=== PATIENT | female | born 1985 | race Caucasian/White ===

== ENCOUNTER → 2025-02-17 13:17 | Outpatient (BNVA) | payer MEDICAID, SELFPAY | PROVIDERS: Referring Provider Nurse Practitioner Occupational Health; Visit Provider Nurse Practitioner Family | DX: L73.8 Other specified follicular disorders (principal); L82.1 Other seborrheic keratosis; L81.4 Other melanin hyperpigmentation; X32.XXXA Exposure to sunlight, initial encounter; L82.0 Inflamed seborrheic keratosis; R20.9 Unspecified disturbances of skin sensation; R20.8 Other disturbances of skin sensation; L29.89 Other pruritus | CPT/HCPCS: 17110; 99203 ==

== ENCOUNTER 2025-04-06 18:14 | Emergency (ER) | payer BC, MEDICAID, SELFPAY ==
[2025-04-06 18:35] VITALS: BP 120/75; PULSE 99; RESP 14; TEMP 37.1; O2SAT 96
[2025-04-06 18:51] VITALS: BP 112/64; PULSE 88; RESP 16; O2SAT 98
[2025-04-06 19:05] LABS: Basophils # 0.1 10^3/uL (0.0-0.1); Basophils % 0.6 %; Eosinophils % 0.2 %; Hematocrit 41.6 % (36-47); Lymphocytes # 0.5 10^3/uL (0.8-4.8); Lymphocytes % 6.4 %; Mean Corpuscular HGB Conc 32.7 g/dL (30-55); Mean Corpuscular Hemoglobin 31.6 pg (27-33); Mean Corpuscular Volume 96.5 fl (85-98); Mean Platelet Volume 8.9 fL (7.4-10.4); Monocytes # 0.8 10^3/uL (0.2-0.9); Monocytes % 9.8 %; Neutrophils # 6.72 10^3/uL (1.8-7.7); Neutrophils % 82.8 %; Nucleated Red Blood Cells % 0 %; Platelet Count 225 10^3/cmm (157-399); Red Blood Count 4.31 10^6/uL (3.85-5.65); Red Cell Distribution Width 12.5 % (12.1-15.1); White Blood Count 8.13 10^3/uL (3.29-11.43)
--- NOTE | 2025-04-06 19:06 | CTR_ITS ---
PROCEDURE INFORMATION: Exam: CT Abdomen And Pelvis With Contrast Exam date and time: 04/06/2025 8:04 PM Age: 39 years old Clinical indication: Abdominal pain; Generalized; Additional info: Llq abdominal pain TECHNIQUE: Imaging protocol: Computed tomography of the abdomen and pelvis with contrast. Radiation optimization: All CT scans at this facility use at least one of these dose optimization techniques: automated exposure control; mA and/or kV adjustment per patient size (includes targeted exams where dose is matched to clinical indication); or iterative reconstruction. Contrast material: OMNIPAQUE 350; Contrast volume: 100 ml; Contrast route: INTRAVENOUS (IV); COMPARISON: CR (CHEST, ) 04/06/2025 7:07 PM RADIATION DOSE METRICS: Total DLP (mGy-cm): 301.8 FINDINGS: Lungs: Minimal right lung base patchy airspace disease. Prominent areas of left mid to lower lung patchy airspace disease with infiltrates and consolidation. Liver: Unremarkable. No enhancing mass. Gallbladder and biliary ducts: No calcified gallstones or biliary dilation identified. Pancreas: Unremarkable with no suspicious mass. No ductal dilation. Spleen: The spleen is not enlarged. No suspicious enhancing mass is noted. Adrenal glands: Normal. No mass. Kidneys and ureters: Several small bilateral renal cysts. No enhancing renal mass or hydronephrosis. Stomach and bowel: Excess large and small bowel gas throughout. No small bowel obstruction, abscess or free air. Few small bowel loops measure up to about 2.7 cm. Appendix: Normal appendix. Intraperitoneal space: Trace pelvic free fluid is probably physiologic. No abscess or free air. Vasculature: No AAA or acute vascular lesion identified. Lymph nodes: No enlarged lymph nodes. Urinary bladder: Unremarkable as visualized. Reproductive: Few ill-defined uterine fibroids are suspected measuring up to about 3 cm. Left ovarian complex cyst or follicle measures 2.1 cm. Bones/joints: No acute fracture. Soft tissues: No acute or suspicious finding noted. CT/CT abdomen pelvis w con* [id number] IMPRESSION: 1. Left lower lobe areas of prominent consolidating pneumonia favored. These should be followed up to resolution. Minimal area of right lung base atelectasis or airspace disease as well. 2. Small left ovarian cyst or follicle measuring about 2 cm. It is mildly complex with a thickened wall. Minimal adjacent free fluid. 3. At least mild diffuse large and small bowel ileus. No small bowel obstruction, abscess or free air. 4. A few other chronic/incidental findings above. COMMENTS: Consistent with the [employer]'s Incidental Findings Committee white paper (J Am Andrey Radiol 2018): Any incidental renal lesion less than 1 cm or classified as too small to characterize, or any incidental cystic renal lesion characterized as simple-appearing, is likely benign. No follow-up imaging is recommended for these lesions per consensus recommendations based on imaging criteria.
--- NOTE | 2025-04-06 19:06 | ED_ITS ---
HPI - General Adult 2 General: Chief complaint: Abdominal Pain Stated complaint: fever 2xday Time Seen by Provider: 04/06/25 18:37 Source: patient Mode of arrival: ambulatory Limitations: no limitations History of Present Illness: Patient is a 39-year-old female presents to ED today with complaint of fever as high as 101?102, cough, and left lower quadrant abdominal pain beginning approximately 2 to 3 days ago. She feels like symptoms started all around the same time. She states she has had one episode of post tussive vomiting but otherwise no episodes of emesis or changes to her bowel movements. Passing flatulence normally. She feels mildly short of breath. No hemoptysis. No sick contacts. She is not having any chest pain. She is afebrile upon arrival here. Reporting normal menstrual cycles. No vaginal discharge/odor. Onset (ago): day(s) Severity: moderate Relieving factors: none Exacerbating factors: none Associated symptoms: Reports cough, dyspnea and fevers/chills; Deny chest pain, headache(s), nausea, rash or vomiting Treatments prior to arrival: none Related Data Previous Rx's ?Medication ?Instructions ?Recorded cyclobenzaprine 5 mg tablet 5 mg PO TID PRN muscle spa sm #20 05/10/24 tabs amoxicillin 500 mg capsule 1,000 mg (2 x 500 mg) PO TI D 7 04/06/25 days #42 caps azithromycin 250 mg tablet See Rx Instructions PO .COM PLEX #6 04/06/25 tabs Allergies Allergy/AdvReac Type Severity Reaction Status Date / Time No Known Allergies Allergy Verified 04/06/25 18:39 Review of Systems 2 Const: Reports: fever(s); Denies: change in appetite, change in weight or night sweats ENMT: Denies: throat pain, odynophagia, ear or mastoid pain, nasal discharge, nasal congestion or sinus pain Card: Denies: chest pain Resp: Reports: dyspnea, non-productive cough and chest congestion; Denies: wheezing or hemoptysis GI: Reports: abdominal pain; Denies: nausea, vomiting, diarrhea, hematochezia or melena : Denies: flank pain, difficulty voiding, dysuria, urinary frequency, urinary urgency or urinary hesitancy Musc: Denies: neck pain, back pain, extremity pain, extremity swelling, joint swelling or joint redness Skin/Breast: Denies: rash Neuro: Denies: headache(s), numbness in extremities, weakness in extremities, sensory changes or dizziness PFSH ED 2 PFSH: Social History Smoking and tobacco/nicotine status: current every day tobacco/nicotine user Physical Exam 2 Const: COMMON NORMALS: no acute distress, average body habitus, patient oriented x3, no limitations, healthy appearing, alert and well nourished Neck/C-Spine: COMMON NORMALS: no lymphadenopathy GENERAL: Yes normal visual inspection Chest: COMMONS NORMALS: normal inspection of the chest and normal palpation of entire chest wall Resp: COMMON NORMALS: normal respiratory effort and clear to auscultation bilaterally AUSCULTATION: clear to auscultation bilaterally Cardio: COMMON NORMALS: regular rate and regular rhythm RATE: regular rate RHYTHM: regular rhythm GI: COMMON NORMALS: Normal to inspection, nondistended, normoactive bowel sounds present, Soft to palpation, No hepatosplenomegaly present and no masses INSPECTION: Yes normal to inspection AUSCULTATION: Yes normoactive bowel sounds PALPATION: Yes Soft to palpation, Yes Tenderness to palpation present (GI) (LLQ), No Guarding due to palpation present (GI), No Rigid due to palpation and Yes No hepatosplenomegaly present : COMMON NORMALS: Yes no CVA tenderness BLADDER/KIDNEY EXAM: Yes no CVA tenderness Back/Pelvis: COMMON NORMALS: no CVA tenderness, thoracic and lumbar spine normal to inspection and no thoracic nor lumbar tenderness Extremity: GENERAL: Yes normal exam except as noted Neuro: VIDHI COMA SCALE: document GCS findings [place] coma scale eye opening: Spontaneous Vidhi coma scale verbal response: Orientated Vidhi coma scale motor response: Obey commands [place] coma scale total score: 15 COMMON NORMALS: patient oriented x3, moves all extremities, no focal motor deficits and no sensory deficits noted SENSORIUM/ORIENTATION: Yes alert Skin: COMMON NORMALS: no rashes or lesions noted GENERAL SKIN EXAM: no rashes or lesions noted Course 2 Vital Signs: Vital signs: Vital Signs Temperature 98.7 F 04/06/25 18:35 Pulse Rate 94 04/06/25 21:15 Respiratory Rate 16 04/06/25 18:51 Blood Pressure 113/86 04/06/25 21:15 Pulse Oximetry 96 04/06/25 21:15 Oxygen Delivery Me thod Room Air 04/06/25 21:00 MDM - General Adult Medical Decision Making Patient appears in no acute distress. Vital signs are stable. Blood work showing a normal white count. Remainder of blood work is unremarkable. XR of her chest concerning for consolidation in her left lung base. CT abdomen and pelvis obtained due to abdominal complaints. This confirmed left lower lobe consolidating pneumonia. She did have a left 2 cm ovarian cyst. Mild diffuse small and large bowel ileus. No obstruction, abscess, or free air. She is reporting normal bowel movements and passing flatulence. She has only had one episode of vomiting and this was post-tussive. Patient was given IV Rocephin prior to discharge. Will place her on amoxicillin and azithromycin for coverage of community-acquired pneumonia. Discussed bland liquid diet for her ileus with recommendations as tolerated. Reassurance given for her ovarian cyst as this should resolve spontaneously. Return to ED precautions discussed. Otherwise I would like her to follow-up with primary care following antibiotic completion to monitor for resolution. Medical Records I reviewed the patient's medical records. Lab Data I reviewed the patient's lab results. 04/06/25 18:53 04/06/25 18:53 Radiology Impressions Abdomen/Pelvis CT 04/06/25 19:06 IMPRESSION: 1. Left lower lobe areas of prominent consolidating pneumonia favored. These should be followed up to resolution. Minimal area of right lung base atelectasis or airspace disease as well. 2. Small left ovarian cyst or follicle measuring about 2 cm. It is mildly complex with a thickened wall. Minimal adjacent free fluid. 3. At least mild diffuse large and small bowel ileus. No small bowel obstruction, abscess or free air. 4. A few other chronic/incidental findings above. COMMENTS: Consistent with the [employer]'s Incidental Findings Committee white paper (J Am Andrey Radiol 2018): Any incidental renal lesion less than 1 cm or classified as too small to characterize, or any incidental cystic renal lesion characterized as simple-appearing, is likely benign. No follow-up imaging is recommended for these lesions per consensus recommendations based on imaging criteria. Chest X-Ray 04/06/25 19:06 IMPRESSION: Mild increased density in the left lung bases concerning for consolidation in the setting of fever and cough. Follow-up as indicated. Laboratory Results WBC 8.13 10^3/uL (3.29-11.43) 04/06/25 18:53 RBC 4.31 10^6/uL (3.85-5.65) 04/06/25 18:53 Hgb 13.60 g/dL (11.27-16.99) 04/06/25 18:53 Hct 41.6 % (36-47) 04/06/25 18:53 MCV 96.5 fl (85-98) 04/06/25 18:53 MCH 31.6 pg (27-33) 04/06/25 18:53 MCHC 32.7 g/dL (30-55) 04/06/25 18:53 RDW 12.5 % (12.1-15.1) 04/06/25 18:53 Plt Count 225 10^3/cmm (157-399) 04/06/25 18:53 MPV 8.9 fL (7.4-10.4) 04/06/25 18:53 Neut % (Auto) 82.8 % 04/06/25 18:53 Lymph % (Auto) 6.4 % 04/06/25 18:53 Titus % (Auto) 9.8 % 04/06/25 18:53 Eos % (Auto) 0.2 % 04/06/25 18:53 Baso % (Auto) 0.6 % 04/06/25 18:53 Neut # (Auto) 6.72 10^3/uL (1.8-7.7) 04/06/25 18:53 Lymph # (Auto) 0.5 10^3/uL (0.8-4.8) L 04/06/25 18:53 Titus # (Auto) 0.8 10^3/uL (0.2-0.9) 04/06/25 18:53 Eos # (Auto) 0.0 10^3/uL (0.0-0.8) 04/06/25 18:53 Baso # (Auto) 0.1 10^3/uL (0.0-0.1) 04/06/25 18:53 Nucleated RBC % (auto) 0 % 04/06/25 18:53 Nucleated RBCs # 0.0 /100WBC 04/06/25 18:53 Sodium 135 mmol/L (136-145) L 04/06/25 18:53 Potassium 3.9 mmol/L (3.5-5.1) 04/06/25 18:53 Chloride 100 mmol/L (98-107) 04/06/25 18:53 Carbon Dioxide 21 mmol/L (22-29) L 04/06/25 18:53 Anion Gap 17.9 (5-19) 04/06/25 18:53 BUN 6 mg/dL (6-20) 04/06/25 18:53 Creatinine 0.7 mg/dL (0.5-0.9) 04/06/25 18:53 GFR Calculation 92.7 mL/min (90-130) 04/06/25 18:53 Glucose 98 mg/dL (65-115) 04/06/25 18:53 Calculated Osmolality 278 mOsm/kg (285-295) L 04/06/25 18:53 Calcium 9.4 mg/dL (8.5-10.5) 04/06/25 18:53 Total Bilirubin 0.4 mg/dL (0.15-1.2) 04/06/25 18:53 AST 16 U/L (0-32) 04/06/25 18:53 ALT 11 U/L (0-33) 04/06/25 18:53 Alkaline Phosphatase 37 U/L (35-105) 04/06/25 18:53 Total Protein 7.8 g/dL (6.6-8.7) 04/06/25 18:53 Albumin 4.4 g/dL (3.5-5.2) 04/06/25 18:53 Globulin 3.4 g/dL (1.3-4.6) 04/06/25 18:53 Lipase 50 U/L (13-60) 04/06/25 18:53 HCG, Qual Negative (Negative) 04/06/25 18:53 Urine Color Yellow (Yellow) 04/06/25 19:44 Urine Appearance Clear (CLEAR) 04/06/25 19:44 Urine pH 6.0 (5-7) 04/06/25 19:44 Ur Specific [place] 1.015 (1.005-1.030) 04/06/25 19:44 Urine Protein 1+ (Negative) A 04/06/25 19:44 Urine Glucose (UA) Negative (Normal) 04/06/25 19:44 Urine Ketones 2+ (Negative) H 04/06/25 19:44 Urine Blood 2+ (Negative) A 04/06/25 19:44 Urine Nitrate Negative (Negative) 04/06/25 19:44 Urine Bilirubin Negative (Negative) 04/06/25 19:44 Urine Urobilinogen 1.0 mg/dL (Negative) 04/06/25 19:44 Ur Leukocyte Esterase Negative (Negative) 04/06/25 19:44 Urine RBC 6-10 /hpf (0-2) 04/06/25 19:44 Urine WBC 0-5 /hpf (0-5) 04/06/25 19:44 Ur Squamous Epith Cells 6-10 /hpf (0-5) 04/06/25 19:44 Amorphous Sediment Not Reportable 04/06/25 19:44 Urine Bacteria Trace /hpf (NONE) 04/06/25 19:44 Hyaline Casts 0.40 /lpf 04/06/25 19:44 All radiology interpretation(s) finalized by discharge Discharge Plan Discharge Patient Disposition: Home Clinical Impression: Cyst of left ovary, Ileus LLL pneumonia Qualifiers: Pneumonia type: due to unspecified organism Qualified Code(s): J18.9 - Pneumonia, unspecified organism Condition: Stable Prescriptions: New amoxicillin 500 mg capsule 1,000 mg PO TID 7 Days Qty: 42 0RF azithromycin 250 mg tablet See Rx Instructions .ROUTE .COMPLEX Qty: 6 0RF Rx Instructions: take 500 mg today (day 1), then 250 mg for 4 days (days 2-5) No Action cyclobenzaprine 5 mg tablet 5 mg PO TID PRN (Reason: muscle spasm) Qty: 20 0RF Discharge Orders: Discharge ED (Routine); Ordered 04/06/25 Ordered By: Tena Ortega Patient Instructions: Bacterial Pneumonia (DC) Activity Restrictions/Additional Instructions: As we discussed, for your antibiotics tomorrow and start them immediately. You may return to the emergency department for worsening shortness of breath, chest pain, generally feeling worse or unwell, or any other concerns you may have. Please follow-up with primary care after antibiotic completion for re- evaluation. As we discussed, CT imaging showing a small left ovarian cyst. This most likely will resolve on its own. They did comment on the presence of a small/large bowel ileus (slowing of your gut). Recommend a bland liquid diet over the next 48 to 72 hours and slowly advance as tolerated. You may return to the emergency department for worsening abdominal pain, repetitive episodes of vomiting, inability to pass stool or flatulence, or any other concerns you may have. Print Language: Greek Coding Level of Care Code ED Night Stocker for Ngoc Álvarez
--- NOTE | 2025-04-06 19:06 | XRR_ITS ---
PROCEDURE INFORMATION: Exam: XR Chest Exam date and time: 04/06/2025 7:07 PM Age: 39 years old Clinical indication: Cough and fever; Additional info: Cough/fever TECHNIQUE: Imaging protocol: Radiologic exam of the chest. Views: 1 view. COMPARISON: No relevant prior studies available. FINDINGS: Lungs: Mild increased density in the left lung bases concerning for consolidation in the setting of fever and cough. Pleural spaces: No pleural effusion or pneumothorax. Heart/Mediastinum: The cardiomediastinal silhouette is within normal limits. Bones/joints: No acute osseous abnormalities are seen. XR/XR chest 1V portable [id number] IMPRESSION: Mild increased density in the left lung bases concerning for consolidation in the setting of fever and cough. Follow-up as indicated.
[2025-04-06 19:17] LABS: HCG, Serum Qual Negative (Negative)
[2025-04-06 19:39] VITALS: BP 109/68; O2SAT 99
[2025-04-06 19:53] LABS: Bilirubin Urine Negative (Negative); Blood Urine 2+ (Negative); Glucose Urine UA Negative (Normal); Ketones Urine 2+ (Negative); Leukocyte Esterase Urine Negative (Negative); Nitrate Urine Negative (Negative); Protein Urine 1+ (Negative); Specific Gravity, Urine 1.015 (1.005-1.030); Urine Appearance Clear (CLEAR); Urine Color Yellow (Yellow)
[2025-04-06 19:55] LABS: Add Urine Microscopic? YES; Bacteria Urine Trace /hpf; WBC Urine 0-5 /hpf (0-5)
[2025-04-06] MEDS: iohexol 350 mg/mL 500 mL Btl (per mL) IV (20:08)
[2025-04-06 20:30] VITALS: BP 130/68; PULSE 86; O2SAT 98
[2025-04-06 21:00] VITALS: BP 113/86; PULSE 96; O2SAT 98
[2025-04-06] MEDS: cefTRIAXone 1,000 mg SDV 1000 MG IVP (21:06)
[2025-04-06 21:15] VITALS: BP 113/86; PULSE 94; O2SAT 96
[2025-04-06 21:51] LABS: Alanine Aminotransferase 11 U/L (0-33); Albumin Level 4.4 g/dL (3.5-5.2); Alkaline Phosphatase 37 U/L (35-105); Anion Gap 17.9 (5-19); Aspartate Amino Transferase 16 U/L (0-32); Blood Urea Nitrogen 6 mg/dL (6-20); Calcium 9.4 mg/dL (8.5-10.5); Carbon Dioxide 21 mmol/L (22-29); Chloride 100 mmol/L (98-107); Creatinine Clr Calc Pharmacy 94.3979; Globulin 3.4 g/dL (1.3-4.6); Glomerular Filtration Rate 92.7 mL/min (90-130); Glucose 98 mg/dL (65-115); Lipase 50 U/L (13-60); Osmolality Calculated 278 mOsm/kg (285-295); Potassium 3.9 mmol/L (3.5-5.1); Sodium 135 mmol/L (136-145); Total Bilirubin 0.4 mg/dL (0.15-1.2); Total Protein 7.8 g/dL (6.6-8.7)
== END 2025-04-06 21:16 | disposition home or self-care (01) ==
PROVIDERS: Emergency Provider Physician Assistant
DX: K56.7 Ileus, unspecified (principal); N83.202 Unspecified ovarian cyst, left side; J18.9 Pneumonia, unspecified organism; Z72.0 Tobacco use
CPT/HCPCS: 71045; 74177; 80053; 81001; 83690; 84703; 85025; 96374; 99285; J0696

== ENCOUNTER → 2025-09-26 08:27 | Outpatient (BNVA) | payer BC, MEDICAID, SELFPAY | PROVIDERS: Visit Provider Orthopaedic Surgery | DX: M25.511 Pain in right shoulder (principal) | CPT/HCPCS: 73030 ==

== ENCOUNTER 2025-10-11 12:55 | Outpatient (CLI) | payer BC, MEDICAID, SELFPAY ==
--- NOTE | 2025-10-11 13:00 | MR_ITS ---
WS: [id number] MRI RIGHT SHOULDER NONCONTRAST TECHNIQUE: Sagittal T2, coronal T1, T2 and proton density imaging. Axial gradient PDE imaging. CLINICAL INFORMATION: Right shoulder pain COMPARISON: None. FINDINGS: Mild degenerative arthritis AC joint with small amount of fluid and edema. Trace subacromial fluid. Impingement on the underlying supraspinatus and infraspinatus. Tendinopathy supraspinatus and infraspinatus. Small bursal surface and undersurface tears distal supraspinatus. Small bursal surface tear distal infraspinatus. Normal teres minor. Normal subscapularis tendon. Biceps tendon appears intact within the bicipital groove. Intra-articular biceps tendon appears intact. Small amount of fluid and edema along the coracoclavicular ligaments. Recommend correlation for ligamentous injury. MR/MR shoulder RT wo con* [id number] IMPRESSION: 1. 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 Mild subacromial spurring with trace subacromial fluid. Mild downsloping acromion. 2. Tendinopathy supraspinatus and infraspinatus with small intrasubstance tear s distally. No high-grade tears. No tendon retraction. 3. Normal teres minor and subscapularis tendon. 4. Biceps tendon appears intact. Intra-articular biceps tendon appears intact. 5. Fluid and edema along the coracoclavicular ligaments. Recommend correlation for ligamentous injury.
== END 2025-10-11 12:56 | disposition home or self-care (01) ==
LOC: RAD 12:55
PROVIDERS: PCP Orthopaedic Surgery; Visit Provider Orthopaedic Surgery
DX: M25.511 Pain in right shoulder (principal); M19.011 Primary osteoarthritis, right shoulder; M75.31 Calcific tendinitis of right shoulder; S43.419A Sprain of unspecified coracohumeral (ligament), initial encounter; X58.XXXA Exposure to other specified factors, initial encounter; R60.0 Localized edema
CPT/HCPCS: 73221